=== PATIENT | male | born 1990 | race Two or more races ===

== ENCOUNTER 2018-02-21 13:19 | Emergency (ER) | payer SELFPAY, OTHER ==
[2018-02-21] MEDS: IBUPROFEN 600 MG TAB PO (14:52)
== END 2018-02-21 15:48 | disposition home or self-care (01) ==
LOC: FTE 13:19
DX: S60.031A Contusion of right middle finger without damage to nail, initial encounter (principal); S60.041A Contusion of right ring finger without damage to nail, initial encounter; W20.8XXA Other cause of strike by thrown, projected or falling object, initial encounter; Y92.89 Other specified places as the place of occurrence of the external cause
CPT/HCPCS: 73130; 73130-RT; 99283-25